=== PATIENT | female | born 1940 | race Caucasian/White ===

== ENCOUNTER 2020-08-14 12:21 | Outpatient (CLI) | payer MEDICARE, SELFPAY ==
--- NOTE | 2020-08-14 12:27 | XRR_ITS ---
PROCEDURE INFORMATION: Exam: XR Chest, 2 Views Exam date and time: 08/14/2020 12:27 PM Age: 79 years old Clinical indication: Dyspnea; Prior surgery; Surgery type: Double mastectomy; Patient HX: SOB a couple of months, worse in recent month, no chest pain; Additional info: Dyspnea, hypertension TECHNIQUE: Imaging protocol: XR of the chest Views: 2 views. COMPARISON: No relevant prior studies available. FINDINGS: Lungs: Unremarkable. No consolidation. Pleural space: Unremarkable. No pleural effusion. No pneumothorax. Heart/Mediastinum: Unremarkable. No cardiomegaly. Bones/joints: There is a lumbar scoliosis convex to the left. Soft tissues: Clips are present in the left axilla from axillary node dissection. XR/XR chest 2V* [id number] IMPRESSION: No significant cardiopulmonary abnormality.
== END 2020-08-14 12:22 | disposition home or self-care (01) ==
LOC: RAD 12:25
PROVIDERS: PCP Family Medicine; Visit Provider Family Medicine
DX: R06.00 Dyspnea, unspecified (principal); I10 Essential (primary) hypertension
CPT/HCPCS: 71046

== ENCOUNTER 2020-11-26 15:13 | Outpatient (CLI) | payer MEDICARE, SELFPAY ==
--- NOTE | 2020-11-26 15:24 | XR_ITS ---
WS: [id number] SCREENING DEXA SCAN ipnexus CLINICAL INFORMATION: POSTMENOPAUSAL COMPARISON: FINDINGS: The L1-L4 bone mineral density measures 1.363 g/cm2. This corresponds to a T score score of 1.5 and Z score of 3.2. Left femoral neck bone mineral density measures 0.990 g/cm2. This corresponds to a T score of -0.1 an d Z score of 1.8. Right femoral neck bone mineral density measures 1.025 g/cm2. This corresponds to a T score 0.1of and Z score of 2.0. Mean femoral neck bone mineral density measures 1.008 g/cm2. This corresponds to a T score of 0.0 and Z score of 1.9. XR/XR DEXA peripheral [id number] IMPRESSION: Normal bone mineralization. Patient's FRAX calculated 10 year probability for major osteoporotic fracture i s 17.4 % and osteoporotic hip fracture is 3.2%.
== END 2020-11-26 15:14 | disposition home or self-care (01) ==
LOC: RADWPI 15:18
PROVIDERS: PCP Family Medicine; Visit Provider Family Medicine
DX: Z78.0 Asymptomatic menopausal state (principal)
CPT/HCPCS: 77081

== ENCOUNTER 2021-03-18 11:32 | Emergency (ER) | payer MEDICARE, SELFPAY ==
[2021-03-18 11:37] VITALS: BP 150/56; PULSE 84; RESP 18; TEMP 36.6; O2SAT 97; BMI 28.5
--- NOTE | 2021-03-18 11:43 | W.ED.NAVMDI ---
HPI - Nausea/Vomiting/Diarrhea General: Chief complaint: Nausea/Vomiting/Diarrhea Stated complaint: n/d for days Time Seen by Provider: 03/18/21 11:37 History of Present Illness: HPI Narrative: The patient is an 80-year-old female who comes to the ER complaining of diarrhea for the past few days. She says Thursday evening she ate some old [place] onion soup and that is possibly what caused this. She began with nausea but did not vomit. And she has had diarrhea that evening yesterday and this morning. She says she feels weak, has abdominal cramping and is tired of having diarrhea. Denies recent antibiotic use or history of C. difficile. Past medical history hypertension. MD elicited complaint: diarrhea Onset (ago): day(s) (3) Description of diarrhea: watery Associated nausea: No Associated abdominal pain: No Location of pain: None Severity: moderate Quality: cramping Exacerbating factors: eating Relieving factors: none Context: possible food poisoning Associated symtoms: Reports fatigue and weakness; Denies anxiety, change in vision, chest pain, cough, dizziness, fevers/chills, headache(s) or nausea Review of Systems General: Reports: 10 or more systems reviewed and unremarkable except in HPI and below Const: Reports: fatigue Eyes: Denies: change in vision, blurry vision or eye redness ENMT: Denies: throat pain, swelling of lips/tongue, ear or mastoid pain or nasal congestion Card: Denies: chest pain Resp: Denies: dyspnea, productive cough or non-productive cough GI: Denies: nausea : Denies: flank pain, difficulty voiding, urinary frequency or urinary urgency Musc: Denies: neck pain, back pain, extremity pain, joint pain, joint redness, limited range of motion or muscle weakness Skin/Breast: Denies: rash, pruritus, erythema, skin pain or skin tenderness Neuro: Denies: headache(s), numbness in extremities, weakness in extremities, sensory changes, difficulty walking, dizziness, confusion or Slurred speech present Psych: Denies: anxiety or depression Endo: Denies: polyuria All/Imm: Denies: urticaria, throat swelling or tongue swelling Physical Exam Const: COMMON NORMALS: no acute distress, average body habitus, patient oriented x3, no limitations, healthy appearing, alert and well nourished GENERAL APPEARANCE: cooperative, comfortable, well kempt and well developed ORIENTATION/CONSCIOUSNESS: Yes awake, Yes oriented to person, Yes oriented to place and Yes oriented to time HENMT: COMMON NORMALS: normocephalic, external ears normal and Normal external nose present HEAD & SCALP: normal to inspection and normocephalic NOSE: Normal external nose present EXTERNAL EAR: Yes external ears normal MOUTH: Normal oral and palatal mucosa present THROAT: posterior oropharynx normal Eye: COMMON NORMALS: Equal, round and reactive pupils present and EOMs intact bilaterally GENERAL EYE: appearance normal, both eyes and all related structures PUPIL: Yes Equal, round and reactive pupils present Neck/C-Spine: COMMON NORMALS: full ROM, no lymphadenopathy, no meningeal signs and no JVD GENERAL: Yes normal visual inspection Lymph: LYMPHATIC: no lymphadenopathy noted Chest: COMMONS NORMALS: normal inspection of the chest and normal palpation of entire chest wall Resp: COMMON NORMALS: normal respiratory effort, No retractions, No use of accessory muscles, clear to auscultation bilaterally and percussion normal EFFORT & INSPECTION: Yes able to speak in complete sentences AUSCULTATION: clear to auscultation bilaterally PERCUSSION: percussion normal Cardio: COMMON NORMALS: no JVD, regular rate, regular rhythm, S1 normal heart sound present, S2 normal heart sound present and Peripheral pulses 2+ throughout RATE: regular rate RHYTHM: regular rhythm HEART SOUNDS: S1 normal heart sound present and S2 normal heart sound present PERIPHERAL PULSES: Peripheral pulses 2+ throughout GI: COMMON NORMALS: Normal to inspection, nondistended, normoactive bowel sounds present, Soft to palpation, non-tender and no masses INSPECTION: Yes normal to inspection PALPATION: Yes Soft to palpation : COMMON NORMALS: Yes no CVA tenderness BLADDER/KIDNEY EXAM: Yes no CVA tenderness Back/Pelvis: COMMON NORMALS: no CVA tenderness, thoracic and lumbar spine normal to inspection, no thoracic nor lumbar tenderness and thoraco-lumbar ROM normal Extremity: COMMON NORMALS: normal to inspection, full ROM, capillary refill normal, no joint enlargement and no pedal edema GENERAL: Yes normal exam except as noted Neuro: COMMON NORMALS: patient oriented x3, CN's II-XII intact bilaterally, moves all extremities, no focal motor deficits, no sensory deficits noted and gait normal SENSORIUM/ORIENTATION: Yes alert, Yes oriented to person, Yes oriented to place and Yes oriented to time MENINGEAL SIGNS: Yes no meningeal signs Psych: COMMON NORMALS: mental status grossly normal, Normal thought process present, cooperative, normal affect and speech normal APPEARANCE: Yes well kempt ATTITUDE: Yes calm SPEECH: Yes normal speech THOUGHT PROCESS: Normal thought process present Skin: COMMON NORMALS: no rashes or lesions noted GENERAL SKIN EXAM: no rashes or lesions noted Course Vital Signs: Vital signs: Vital Signs Temperature 97.9 F 03/18/21 11:37 Pulse Rate 78 03/18/21 16:42 Respiratory Rate 18 03/18/21 16:42 Blood Pressure 137/88 03/18/21 16:42 Pulse Oximetry 98 03/18/21 16:42 MDM - Nausea/Vomiting/Diarrhea MDM Narrative: Medical decision making narrative: The patient likely has food poisoning causing her diarrhea. She was given fluids and did improve some with the Toradol. Incidentally she had some hematuria and white cells and was scanned. There are multiple hypodensities in both kidneys possibly hemorrhagic cyst versus metastatic disease. I discussed this with the patient who recommended calling her primary care physician. I discussed with Dr. Bolden who recommended she follow-up in the clinic tomorrow for further care and work-up of this. Patient is aware there is a possibility it could be cancer and will follow up. We will also discharge her with Macrobid for a potential UTI. Lab Data: Labs: Lab Results 03/18/21 03/18/21 03/18/21 Range/Units 12:00 12:00 12:00 WBC 4.9 (4.0-10.0) 10^3/ uL RBC 4.50 (4.1-5.3) 10^6/u L Hgb 13.9 (11.5-15.3) g/dL Hct 42.5 (37.0-47.0) % MCV 94.4 (81-99) fL MCH 30.9 (28.0-34.0) pg MCHC 32.7 (30.0-36.0) g/dL RDW 13.2 (12.1-15.1) % Plt Count 250 (130-400) 10^3/c mm MPV 9.9 (7.4-10.4) fL Neut % (Auto) 65.8 % Lymph % (Auto) 21.9 % [place] % (Auto) 10.7 % Eos % (Auto) 1.0 % Baso % (Auto) 0.2 % Neut # (Auto) 3.25 (1.8-7.7) 10^3/u L Lymph # (Auto) 1.1 (0.8-4.8) 10^3/u L [place] # (Auto) 0.5 (0.2-0.9) 10^3/u L Eos # (Auto) 0.1 (0.0-0.8) 10^3/u L Baso # (Auto) 0.0 (0.0-0.1) 10^3/u L Nucleated RBC % (a uto) 0 % Nucleated RBCs # 0.0 /100WBC PT (12.1-14.9) SECO NDS INR (0.8-1.2) Sodium 140 (136-145) mmol/L Potassium 3.4 L (3.5-5.1) mmol/L Chloride 102 (98-107) mmol/L Carbon Dioxide 23 (22-29) mmol/L Anion Gap 18.4 (5-19) BUN 21 (8-23) mg/dL Creatinine 1.0 H (0.5-0.9) mg/dL GFR Calculation Not Reportable Glucose 88 (65-115) mg/dL Calculated Osmolal ity 292 (285-295) mOsm/k g Lactate 1.2 (0.5-2.2) mmol/L Calcium 8.2 L (8.5-10.5) mg/dL Total Bilirubin 0.2 (0.15-1.2) mg/dL AST 40 H (0-32) U/L ALT 24 (0-33) U/L Alkaline Phosphata se 64 (35-105) IU/L Total Protein 7.1 (6.6-8.7) g/dL Albumin 4.3 (3.5-5.2) g/dL Globulin 2.8 (1.3-4.6) g/dL Lipase 59 (13-60) U/L Urine Color (Yellow) Urine Appearance (CLEAR) Urine pH (5-7) Ur Specific Gravit y (1.005-1.030) Urine Protein (Negative) Urine Glucose (UA) (Normal) Urine Ketones (Negative) Urine Blood (Negative) Urine Nitrate (Negative) Urine Bilirubin (Negative) Urine Urobilinogen (Negative) mg/dL Ur Leukocyte Luly ase (Negative) Urine RBC (0-2) /hpf Urine WBC (0-5) /hpf Ur Squamous Epith Cells (0-5) /hpf Ur Transition Epit h Cell /hpf Amorphous Sediment /hpf Urine Bacteria (NONE) /hpf Hyaline Casts /lpf Coarse Granular Ca sts /lpf Urine Mucus /hpf 03/18/21 03/18/21 Range/Units 13:33 14:55 WBC (4.0-10.0) 10^3/ uL RBC (4.1-5.3) 10^6/u L Hgb (11.5-15.3) g/dL Hct (37.0-47.0) % MCV (81-99) fL MCH (28.0-34.0) pg MCHC (30.0-36.0) g/dL RDW (12.1-15.1) % Plt Count (130-400) 10^3/c mm MPV (7.4-10.4) fL Neut % (Auto) % Lymph % (Auto) % [place] % (Auto) % Eos % (Auto) % Baso % (Auto) % Neut # (Auto) (1.8-7.7) 10^3/u L Lymph # (Auto) (0.8-4.8) 10^3/u L [place] # (Auto) (0.2-0.9) 10^3/u L Eos # (Auto) (0.0-0.8) 10^3/u L Baso # (Auto) (0.0-0.1) 10^3/u L Nucleated RBC % (a uto) % Nucleated RBCs # /100WBC PT 32.80 H (12.1-14.9) SECO NDS INR 3.14 H (0.8-1.2) Sodium (136-145) mmol/L Potassium (3.5-5.1) mmol/L Chloride (98-107) mmol/L Carbon Dioxide (22-29) mmol/L Anion Gap (5-19) BUN (8-23) mg/dL Creatinine (0.5-0.9) mg/dL GFR Calculation Glucose (65-115) mg/dL Calculated Osmolal ity (285-295) mOsm/k g Lactate (0.5-2.2) mmol/L Calcium (8.5-10.5) mg/dL Total Bilirubin (0.15-1.2) mg/dL AST (0-32) U/L ALT (0-33) U/L Alkaline Phosphata se (35-105) IU/L Total Protein (6.6-8.7) g/dL Albumin (3.5-5.2) g/dL Globulin (1.3-4.6) g/dL Lipase (13-60) U/L Urine Color Yellow (Yellow) Urine Appearance Sl hazy (CLEAR) Urine pH 5 (5-7) Ur Specific Gravit y 1.015 (1.005-1.030) Urine Protein Trace (Negative) Urine Glucose (UA) Norm (Normal) Urine Ketones 1+ H (Negative) Urine Blood 3+ H (Negative) Urine Nitrate Negative (Negative) Urine Bilirubin 1+ H (Negative) Urine Urobilinogen Norm (Negative) mg/dL Ur Leukocyte Luly ase 1+ H (Negative) Urine RBC 5-10 H (0-2) /hpf Urine WBC 10-15 H (0-5) /hpf Ur Squamous Epith Cells 0-4 H (0-5) /hpf Ur Transition Epit h Cell 0-4 /hpf Amorphous Sediment 1+ /hpf Urine Bacteria 1+ H (NONE) /hpf Hyaline Casts 10-15 H /lpf Coarse Granular Ca sts 0-4 H /lpf Urine Mucus Trace /hpf Discharge Plan Discharge Patient Disposition: Home Clinical Impression: Gastroenteritis, Renal cyst Condition: Stable Prescriptions: New Macrobid 100 mg capsule 100 mg PO BID 5 Days Qty: 10 RF: 0 No Action multivitamin Tablet 1 tab PO DAILY RF: 0 potassium chloride 10 mEq tablet extended release 10 meq PO DAILY@08 RF: 0 Deonna 180 mg Tablet 180 mg PO QAM RF: 0 amlodipine 5 mg tablet 5 mg PO DAILY@08 RF: 0 Tylenol 8 Hour 650 mg Tablet Extended Release 650 mg PO BID RF: 0 amitriptyline 10 mg tablet 10 mg PO BEDTIME RF: 0 warfarin 5 mg tablet See Rx Instructions .ROUTE .COMPLEX RF: 0 hydrochlorothiazide 25 mg tablet 25 mg PO DAILY@08 RF: 0 losartan 100 mg tablet 100 mg PO DAILY@08 RF: 0 fluticasone propionate 50 mcg/actuation spray,suspension 2 spray INTRANASAL QAM RF: 0 Vitamin C 1 tab PO DAILY RF: 0 vitamin E 1 tab PO DAILY RF: 0 gelatin Tablet 1 tab PO DAILY RF: 0 magnesium Tablet 1 tab PO DAILY RF: 0 potassium gluconate 595 mg (99 mg) Tablet 595 mg PO DAILY RF: 0 Vitamin B-12 1 tab PO DAILY RF: 0 Vitamin B-6 1 tab PO DAILY RF: 0 Vitamin D3 1 cap PO DAILY RF: 0 lecithin 1 tab PO DAILY RF: 0 Discharge Orders: Discharge ED (Routine); Ordered 03/18/21 Ordered By: Philippe Villalobos Referrals: Bret Bolden MD [Primary Care Provider] - Discharge Diet: Advance as tolerated Discharge Activity: Resume usual activity Patient Instructions: Food Poisoning (ED), Opioid Safety Activity Restrictions/Additional Instructions: You are likely having diarrhea possibly from food poisoning. You can buy Imodium [id number] and that may help with your diarrhea some. Please continue to drink lots of fluids to keep yourself hydrated. There is blood and white cells in your urine and we will be giving you an antibiotic to go home with. CAT scan of your abdomen shows that there are multiple hypodensities in your kidneys that are possibly hemorrhagic cysts versus metastatic cancer. I have discussed with Dr. Gonzales your primary care physician who recommends seeing him in the clinic tomorrow for further work-up of this. Return to the ER at anytime with worsening symptoms. Please be aware that there is a possibility this could be cancer so make sure you follow-up with Dr. Bolden tomorrow as if it is, early diagnosis and treatment leads to better prognosis Coding Level of Care Code ED Dual Hose Cementer for Sarah Fwd Exam Comprehensive
[2021-03-18] MEDS: ketorolac 30 mg/mL INJ 15 MG IVP (12:11)
[2021-03-18] MEDS: sodium chloride 0.9% 1,000 ML 999 ML IV (12:12)
[2021-03-18 12:24] LABS: Basophils % 0.2 %; Eosinophils # 0.1 10^3/uL (0.0-0.8); Hematocrit 42.5 % (37.0-47.0); Hemoglobin 13.9 g/dL (11.5-15.3); Lymphocytes # 1.1 10^3/uL (0.8-4.8); Lymphocytes % 21.9 %; Mean Corpuscular HGB Conc 32.7 g/dL (30.0-36.0); Mean Corpuscular Hemoglobin 30.9 pg (28.0-34.0); Mean Corpuscular Volume 94.4 fL (81-99); Mean Platelet Volume 9.9 fL (7.4-10.4); Monocytes # 0.5 10^3/uL (0.2-0.9); Monocytes % 10.7 %; Neutrophils # 3.25 10^3/uL (1.8-7.7); Neutrophils % 65.8 %; Nucleated Red Blood Cells % 0 %; Platelet Count 250 10^3/cmm (130-400); Red Cell Distribution Width 13.2 % (12.1-15.1); White Blood Count 4.9 10^3/uL (4.0-10.0)
[2021-03-18 12:38] LABS: Lactate (Lactic Acid level) 1.2 mmol/L (0.5-2.2)
[2021-03-18 12:39] LABS: Alanine Aminotransferase 24 U/L (0-33); Albumin Level 4.3 g/dL (3.5-5.2); Alkaline Phosphatase 64 IU/L (35-105); Anion Gap 18.4 (5-19); Aspartate Amino Transferase 40 U/L (0-32); Blood Urea Nitrogen 21 mg/dL (8-23); Calcium 8.2 mg/dL (8.5-10.5); Carbon Dioxide 23 mmol/L (22-29); Chloride 102 mmol/L (98-107); Creatinine Clr Calc Pharmacy 39.7452; Globulin 2.8 g/dL (1.3-4.6); Glucose 88 mg/dL (65-115); Lipase 59 U/L (13-60); Osmolality Calculated 292 mOsm/kg (285-295); Potassium 3.4 mmol/L (3.5-5.1); Sodium 140 mmol/L (136-145); Total Bilirubin 0.2 mg/dL (0.15-1.2); Total Protein 7.1 g/dL (6.6-8.7)
[2021-03-18 13:42] VITALS: RESP 18
[2021-03-18 13:50] LABS: INR 3.14 (0.8-1.2)
[2021-03-18 14:42] VITALS: RESP 18
[2021-03-18 15:12] LABS: Bilirubin Urine 1+ (Negative); Blood Urine 3+ (Negative); Glucose Urine UA Norm (Normal); Ketones Urine 1+ (Negative); Nitrate Urine Negative (Negative); Protein Urine Trace (Negative); Specific Gravity, Urine 1.015 (1.005-1.030); Urine Appearance SL Hazy (CLEAR); Urine Color Yellow (Yellow); Urobilinogen Urine Norm (Negative); pH Urine 5 (5-7)
[2021-03-18 15:13] LABS: Add Urine Microscopic? YES; Leukocyte Esterase Urine 1+ (Negative)
[2021-03-18 15:15] LABS: Bacteria Urine 1+ /hpf; Mucus Urine TRACE /hpf; Squamous Epithelial Cell Urine 0-4 /hpf (0-5); Transitional Epi Cells Urine 0-4 /hpf
--- NOTE | 2021-03-18 15:15 | CTR_ITS ---
PROCEDURE INFORMATION: Exam: CT Abdomen And Pelvis With Contrast Exam date and time: 03/18/2021 3:51 PM Age: 80 years old Clinical indication: Abdominal pain; Generalized; Prior surgery; Surgery type: Appy; Patient HX: HX of breast cancer; Additional info: Abd cramping, blood in urine TECHNIQUE: Imaging protocol: Computed tomography of the abdomen and pelvis with contrast. Radiation optimization: All CT scans at this facility use at least one of these dose optimization techniques: automated exposure control; mA and/or kV adjustment per patient size (includes targeted exams where dose is matched to clinical indication); or iterative reconstruction. Contrast material: OMNI 320; Contrast volume: 95 ml; Contrast route: INTRAVENOUS (IV); COMPARISON: No relevant prior studies available. RADIATION DOSE METRICS: Total DLP (mGy-cm): 1460.15 FINDINGS: Liver: Normal. No mass. Gallbladder and bile ducts: Normal. No calcified stones. No ductal dilation. Pancreas: Normal. No ductal dilation. Spleen: Normal. No splenomegaly. Adrenal glands: Normal. No mass. Kidneys and ureters: Multiple bilateral renal hypodensities with the largest measuring > 1.0 cm. These measure approximately 40-70 Hounsfield units. These probably represent hemorrhagic cysts versus metastatic disease. Nonemergent multiphasic CT abdomen with and without contrast with delayed images may be helpful complete evaluation. Stomach and bowel: Unremarkable. No obstruction. No mucosal thickening. Appendix: No evidence of appendicitis. Intraperitoneal space: Unremarkable. No free air. No significant fluid collection. Vasculature: Unremarkable. No abdominal aortic aneurysm. Lymph nodes: Unremarkable. No enlarged lymph nodes. Urinary bladder: Unremarkable as visualized. Reproductive: Status post hysterectomy. Bones/joints: Moderate to severe multilevel spine degenerative changes including degenerative disc disease, spondylosis and facet degenerative changes. Soft tissues: Unremarkable. Other findings: . CT/CT abdomen pelvis w con* [id number] IMPRESSION: 1. Multiple bilateral renal hypodensities with the largest measuring > 1.0 cm. These measure approximately 40-70 Hounsfield units. These probably represent hemorrhagic cysts versus metastatic disease. Nonemergent multiphasic CT abdomen with and without contrast with delayed images may be helpful complete evaluation. 2. Status post hysterectomy. COMMENTS: Consistent with the [employer]'s Incidental Findings Committee white paper ([facility] 2018): Any incidental renal lesion less than 1 cm or classified as too small to characterize, or any incidental cystic renal lesion characterized as simple-appearing, is likely benign. No follow-up imaging is recommended for these lesions per consensus recommendations based on imaging criteria. Radiation Dose CTDIVOL = (mGy): DLP = 1460.15 (mGy-cm)
[2021-03-18 15:16] LABS: Add Urine Culture? No; Amorphous Sediment Urine 1+ /hpf; Coarse Granular Casts Urine 0-4 /lpf
[2021-03-18] MEDS: iodixanol 320 mg/mL 100mL Btl IV (16:05)
[2021-03-18 16:42] VITALS: BP 137/88; PULSE 78; RESP 18; O2SAT 98
[2021-03-18] MEDS: nitrofurantoin SR (BID) 100 mg Capsule PO (18:20)
[2021-03-18 18:24] VITALS: BP 137/88; PULSE 78; RESP 18; O2SAT 98
== END 2021-03-18 18:25 | disposition home or self-care (01) ==
PROVIDERS: Emergency Provider Family Medicine; PCP Family Medicine
DX: K52.9 Noninfective gastroenteritis and colitis, unspecified (principal); N28.1 Cyst of kidney, acquired; R31.9 Hematuria, unspecified
CPT/HCPCS: 36415; 74177; 80053; 81001; 83605; 83690; 85025; 85610; 96361; 96374; 99284; J1885; J7030; Q9967

== ENCOUNTER 2021-04-25 13:49 | Outpatient (CLI) | payer MEDICARE, SELFPAY ==
--- NOTE | 2021-04-25 14:15 | US_ITS ---
WS: [id number] ULTRASOUND RENAL TECHNIQUE: Ultrasound examination of both kidneys. CLINICAL INFORMATION: RENAL MASS COMPARISON: CT March 18, 2021 FINDINGS: Multiple bilateral renal cysts. No solid renal masses. Both Simple and slightly complex cys ts with one or 2 septations are demonstrated. Largest cyst left mid kidney measuring 1.2 x 1.4 cm. RIGHT: Right kidney is normal in size Echogenicity: Normal. Cortical thickness: 1.6 cm; Normal. Hydronephrosis: None. Perinephric fluid: None. Right kidney measures: 9.1,10.0 cm x 3.9 cm x 4.2 cm. LEFT: Left kidney is normal in size Echogenicity: Normal. Cortical thickness: 0.9 cm; Normal. Hydronephrosis: None. Perinephric fluid: None. Left kidney measures: 6.8 cm x 2.8 cm x 4.0 cm. Normal visualized aorta. US/US renal BI* [id number] IMPRESSION: 1. Multiple bilateral renal cysts. A few of these demonstrate one or 2 septati ons. No solid renal lesions. 2. No hydronephrosis in either kidney. 3. Normal bladder.
== END 2021-04-25 13:50 | disposition home or self-care (01) ==
PROVIDERS: PCP Family Medicine; Visit Provider Family Medicine
DX: N28.89 Other specified disorders of kidney and ureter; Q61.02 Congenital multiple renal cysts
CPT/HCPCS: 76770

== ENCOUNTER 2021-05-20 17:12 | Emergency (ER) | payer MEDICARE, SELFPAY ==
[2021-05-20 17:33] VITALS: BP 153/69; PULSE 68; RESP 16; TEMP 36.6; O2SAT 96; BMI 29.0
--- NOTE | 2021-05-20 19:19 | ED_ITS ---
HPI - Animal Bite General: Chief Complaint: Animal Bite Stated Complaint: stung, sob Time Seen by Provider: 05/20/21 19:19 History of Present Illness: HPI narrative: 80-year-old female comes in today with complaints of wasp sting to the right buttock. Patient reports he went outside to feed her cat and bent over to crab picker a dish and felt a sudden sting to her right buttock. Patient went into the house shortly thereafter and felt some chest discomfort radiating through to her back. Patient sat down and rest and feels better now but came in to be evaluated. Patient does take a daily Deonna tablet 180 mg. Patient had recently taken some Tylenol prior to the staying. Patient thinks that she is doing better but was concerned about the chest pressure. Review of Systems General: Reports: 10 or more systems reviewed and unremarkable except in HPI and below Card: Reports: chest pain Physical Exam Const: COMMON NORMALS: no acute distress and patient oriented x3 GENERAL APPEARANCE: cooperative HENMT: COMMON NORMALS: normocephalic and Normal external nose present HEAD & SCALP: normal to inspection and normocephalic NOSE: Normal external nose present MOUTH: Normal oral and palatal mucosa present THROAT: posterior oropharynx normal Eye: GENERAL EYE: appearance normal, both eyes and all related structures Neck/C-Spine: COMMON NORMALS: full ROM Chest: COMMONS NORMALS: normal inspection of the chest Resp: COMMON NORMALS: normal respiratory effort and clear to auscultation bilaterally EFFORT & INSPECTION: Yes able to speak in complete sentences AUSCULTATION: clear to auscultation bilaterally Cardio: COMMON NORMALS: regular rate and regular rhythm RATE: regular rate RHYTHM: regular rhythm GI: COMMON NORMALS: non-tender Back/Pelvis: COMMON NORMALS: thoracic and lumbar spine normal to inspection Extremity: COMMON NORMALS: normal to inspection Neuro: COMMON NORMALS: patient oriented x3 and moves all extremities Psych: COMMON NORMALS: mental status grossly normal and cooperative Skin: NARRATIVE SKIN EXAM: Punctate lesion to the right buttock with a area of redness approximately 8 cm surrounding it. No induration no abscess formation. Course Vital Signs: Vital signs: Vital Signs Temperature 97.8 F 05/20/21 17:33 Pulse Rate 68 05/20/21 17:33 Respiratory Rate 16 05/20/21 17:33 Blood Pressure 153/69 05/20/21 17:33 Pulse Oximetry 96 05/20/21 17:33 MDM - Animal Bite MDM Narrative: Medical decision making narrative: Patient comes in for a worsening to the right buttock. On exam patient has an area of redness is approximate 8 cm with a centralized punctate lesion. This is on the right buttock. Patient moves well respirations are even lungs are clear to auscultation. Differential diagnosis includes localized reaction to insect bite, anaphylaxis, anxiety, ACS. EKG showed a normal sinus rhythm. Patient was well throughout ER stay for approximately 3 hours was monitored without any adverse changes. Patient felt well and was given a dose of dexamethasone and encouraged to increase Deonna to 180 twice a day for the next 4 days. Patient agreed to plan will use acetaminophen for pain and follow-up with primary care as needed. EKG Data^: EKG 1: Attestation: I personally reviewed and interpreted this EKG as follows: (1950, EKG shows a sinus rhythm with regular rate at 66 bpm. No ectopy no ST el evation. Interpreted as normal. No prior is available at this time for comparison. There is noticeable mild artifact to the EKG.) Discharge Plan Discharge Patient Disposition: Home Clinical Impression: Accidental wasp sting Condition: Stable Prescriptions: No Action multivitamin Tablet 1 tab PO DAILY RF: 0 potassium chloride 10 mEq tablet extended release 10 meq PO DAILY@08 RF: 0 Deonna 180 mg Tablet 180 mg PO QAM RF: 0 amlodipine 5 mg tablet 5 mg PO DAILY@08 RF: 0 Tylenol 8 Hour 650 mg Tablet Extended Release 650 mg PO BID RF: 0 amitriptyline 10 mg tablet 10 mg PO BEDTIME RF: 0 warfarin 5 mg tablet See Rx Instructions .ROUTE .COMPLEX RF: 0 hydrochlorothiazide 25 mg tablet 25 mg PO DAILY@08 RF: 0 losartan 100 mg tablet 100 mg PO DAILY@08 RF: 0 fluticasone propionate 50 mcg/actuation spray,suspension 2 spray INTRANASAL QAM RF: 0 Vitamin C 1 tab PO DAILY RF: 0 vitamin E 1 tab PO DAILY RF: 0 gelatin Tablet 1 tab PO DAILY RF: 0 magnesium Tablet 1 tab PO DAILY RF: 0 potassium gluconate 595 mg (99 mg) Tablet 595 mg PO DAILY RF: 0 Vitamin B-12 1 tab PO DAILY RF: 0 Vitamin B-6 1 tab PO DAILY RF: 0 Vitamin D3 1 cap PO DAILY RF: 0 lecithin 1 tab PO DAILY RF: 0 Discharge Orders: Discharge ED (Routine); Ordered 05/20/21 Ordered By: Jason Goncalves Referrals: Bret Bolden MD [Primary Care Provider] - Discharge Diet: Usual diet Discharge Activity: Increase activity as tolerated Patient Instructions: Insect Bite or Sting (ED), Opioid Safety Activity Restrictions/Additional Instructions: Activity as tolerated. Use acetaminophen for pain. Increase Deonna to 1 tablet twice a day for the next 4 to 5 days. Follow-up with primary care as needed. Return to the emergency department for new concerns. Coding Level of Care Code ED Vinyl Installer for Sarah Fwd Exam Comprehensive
[2021-05-20] MEDS: dexamethasone 10 mg/mL INJ IM (19:53)
[2021-05-20 20:01] VITALS: BP 170/69; PULSE 71; RESP 18; O2SAT 100
== END 2021-05-20 20:02 | disposition home or self-care (01) ==
PROVIDERS: Emergency Provider Nurse Practitioner Family; PCP Family Medicine
DX: T63.461A Toxic effect of venom of wasps, accidental (unintentional), initial encounter (principal); R07.89 Other chest pain; R06.02 Shortness of breath
CPT/HCPCS: 96372; 99283; J1100

== ENCOUNTER 2021-12-05 09:52 | Outpatient (CLI) | payer MEDICARE, SELFPAY ==
--- NOTE | 2021-12-05 10:09 | US_ITS ---
WS: [id number] RENAL ULTRASOUND HISTORY: HX OF ADENOCARCINOMA/RENAL MASS COMPARISON: 04/25/2021 TECHNIQUE: 2-D and color Doppler imaging of the kidney submitted. Right kidney: 9.2 cm x 4.3 cm x 4.1 cm. Normal size kidney with normal echogenicity. There are a few small cortical cysts. The largest in the upper pole measures 1.1 cm maximum. No solid mass. Not all of the tiny cyst noted on the prior study are identified today. Left kidney: 8.3 cm x 4.2 cm x 4.3 cm. Mild atrophy and cortical thinning. Small cortical cysts are identified. Not all the cysts are identi fied today as seen on the prior study. The largest with a maximum diameter 1.1 cm. Aorta: Mild atherosclerosis. Urinary Bladder: Minimally distended. US/US renal BI* [id number] IMPRESSION: 1. No hydronephrosis. 2. No solid mass identified. There are a few small cortical cysts which are st able. 3. Mild atrophy LEFT kidney.
== END 2021-12-05 09:53 | disposition home or self-care (01) ==
PROVIDERS: PCP Family Medicine; Visit Provider Family Medicine
DX: N28.89 Other specified disorders of kidney and ureter (principal); N26.1 Atrophy of kidney (terminal)
CPT/HCPCS: 76770

== ENCOUNTER → 2022-04-08 14:03 | Outpatient (BNVA) | payer MEDICARE, SELFPAY | PROVIDERS: PCP Family Medicine; Visit Provider Family Medicine | DX: E78.5 Hyperlipidemia, unspecified (principal); I10 Essential (primary) hypertension; Z51.81 Encounter for therapeutic drug level monitoring; Z79.01 Long term (current) use of anticoagulants | CPT/HCPCS: 85025; 85610 ==

== ENCOUNTER → 2022-05-08 10:57 | Outpatient (BNVA) | payer MEDICARE, SELFPAY | PROVIDERS: PCP Family Medicine; Visit Provider Family Medicine | DX: Z79.01 Long term (current) use of anticoagulants (principal) | CPT/HCPCS: 85610 ==

== ENCOUNTER → 2022-06-17 11:11 | Outpatient (BNVA) | payer MEDICARE, SELFPAY | PROVIDERS: PCP Family Medicine; Visit Provider Family Medicine | DX: Z79.01 Long term (current) use of anticoagulants (principal) | CPT/HCPCS: 85610 ==

== ENCOUNTER → 2022-07-23 10:55 | Outpatient (BNVA) | payer MEDICARE, SELFPAY | PROVIDERS: PCP Family Medicine; Visit Provider Family Medicine | DX: Z85.3 Personal history of malignant neoplasm of breast (principal) | CPT/HCPCS: 85610 ==

== ENCOUNTER → 2022-09-03 13:18 | Outpatient (BNVA) | payer MEDICARE, SELFPAY | PROVIDERS: PCP Family Medicine; Visit Provider Family Medicine | DX: Z79.01 Long term (current) use of anticoagulants (principal) | CPT/HCPCS: 85610 ==

== ENCOUNTER → 2022-10-06 14:04 | Outpatient (BNVA) | payer MEDICARE, SELFPAY | PROVIDERS: PCP Family Medicine; Visit Provider Family Medicine | DX: Z85.3 Personal history of malignant neoplasm of breast (principal); Z79.01 Long term (current) use of anticoagulants; E78.5 Hyperlipidemia, unspecified; I10 Essential (primary) hypertension; Z86.711 Personal history of pulmonary embolism | CPT/HCPCS: 80053; 85025; 85610 ==

== ENCOUNTER → 2022-12-30 10:08 | Outpatient (BNVA) | payer MEDICARE, SELFPAY | PROVIDERS: PCP Family Medicine; Visit Provider Family Medicine | DX: Z86.711 Personal history of pulmonary embolism (principal); I10 Essential (primary) hypertension; E78.5 Hyperlipidemia, unspecified | CPT/HCPCS: 85610 ==

== ENCOUNTER → 2023-02-04 11:06 | Outpatient (BNVA) | payer MEDICARE, SELFPAY | PROVIDERS: PCP Family Medicine; Visit Provider Family Medicine | DX: E78.5 Hyperlipidemia, unspecified (principal); I10 Essential (primary) hypertension; Z86.711 Personal history of pulmonary embolism; Z79.01 Long term (current) use of anticoagulants | CPT/HCPCS: 85610 ==

== ENCOUNTER → 2023-02-18 10:47 | Outpatient (BNVA) | payer MEDICARE, SELFPAY | PROVIDERS: PCP Family Medicine; Visit Provider Family Medicine | DX: Z86.711 Personal history of pulmonary embolism (principal) | CPT/HCPCS: 85610 ==

== ENCOUNTER → 2023-03-17 12:41 | Outpatient (BNVA) | payer MEDICARE, SELFPAY | PROVIDERS: PCP Family Medicine; Visit Provider Family Medicine | DX: Z86.711 Personal history of pulmonary embolism (principal); E78.5 Hyperlipidemia, unspecified; I10 Essential (primary) hypertension | CPT/HCPCS: 85610 ==

== ENCOUNTER → 2023-03-27 10:58 | Outpatient (BNVA) | payer MEDICARE, SELFPAY | PROVIDERS: PCP Family Medicine; Visit Provider Family Medicine | DX: Z86.711 Personal history of pulmonary embolism (principal) | CPT/HCPCS: 85610 ==

== ENCOUNTER → 2023-04-10 10:14 | Outpatient (BNVA) | payer MEDICARE, SELFPAY | PROVIDERS: PCP Family Medicine; Visit Provider Family Medicine | DX: Z86.711 Personal history of pulmonary embolism (principal) | CPT/HCPCS: 85610 ==

== ENCOUNTER → 2023-04-20 15:14 | Outpatient (BNVA) | payer MEDICARE, SELFPAY | PROVIDERS: PCP Family Medicine; Visit Provider Family Medicine | DX: Z86.711 Personal history of pulmonary embolism (principal); I10 Essential (primary) hypertension | CPT/HCPCS: 80053; 83690; 85025; 85610 ==

== ENCOUNTER → 2023-05-20 10:00 | Outpatient (BNVA) | payer MEDICARE, SELFPAY | PROVIDERS: PCP Family Medicine; Visit Provider Family Medicine | DX: E78.5 Hyperlipidemia, unspecified (principal); Z86.711 Personal history of pulmonary embolism | CPT/HCPCS: 85610 ==

== ENCOUNTER → 2023-05-27 10:47 | Outpatient (BNVA) | payer MEDICARE, SELFPAY | PROVIDERS: PCP Family Medicine; Visit Provider Family Medicine | DX: Z86.711 Personal history of pulmonary embolism (principal) | CPT/HCPCS: 85610 ==

== ENCOUNTER → 2023-06-22 10:01 | Outpatient (BNVA) | payer MEDICARE, SELFPAY | PROVIDERS: PCP Family Medicine; Visit Provider Family Medicine | DX: E78.5 Hyperlipidemia, unspecified (principal); I10 Essential (primary) hypertension; Z79.01 Long term (current) use of anticoagulants; Z86.711 Personal history of pulmonary embolism | CPT/HCPCS: 85610 ==

== ENCOUNTER → 2023-07-22 14:11 | Outpatient (BNVA) | payer MEDICARE, SELFPAY | PROVIDERS: PCP Family Medicine; Visit Provider Family Medicine | DX: Z86.711 Personal history of pulmonary embolism (principal) | CPT/HCPCS: 85610 ==

== ENCOUNTER → 2023-08-18 13:59 | Outpatient (BNVA) | payer MEDICARE, SELFPAY | PROVIDERS: PCP Family Medicine; Visit Provider Family Medicine | DX: E78.5 Hyperlipidemia, unspecified (principal); I10 Essential (primary) hypertension; Z86.711 Personal history of pulmonary embolism | CPT/HCPCS: 85610 ==

== ENCOUNTER → 2023-09-16 10:16 | Outpatient (BNVA) | payer MEDICARE, SELFPAY | PROVIDERS: PCP Family Medicine; Visit Provider Family Medicine | DX: Z86.711 Personal history of pulmonary embolism (principal) | CPT/HCPCS: 85610 ==

== ENCOUNTER → 2023-09-16 10:16 | Outpatient (BNVA) | payer MEDICARE, SELFPAY | PROVIDERS: PCP Family Medicine; Visit Provider Family Medicine | DX: Z86.711 Personal history of pulmonary embolism (principal) | CPT/HCPCS: 85610 ==

== ENCOUNTER → 2023-10-20 10:22 | Outpatient (BNVA) | payer MEDICARE, SELFPAY | PROVIDERS: PCP Family Medicine; Visit Provider Family Medicine | DX: Z86.711 Personal history of pulmonary embolism (principal) | CPT/HCPCS: 85610 ==

== ENCOUNTER → 2023-11-17 09:14 | Outpatient (BNVA) | payer MEDICARE, SELFPAY | PROVIDERS: PCP Family Medicine; Visit Provider Family Medicine | DX: I10 Essential (primary) hypertension (principal); E78.5 Hyperlipidemia, unspecified; Z86.711 Personal history of pulmonary embolism | CPT/HCPCS: 80053; 80061; 85025; 85610 ==

== ENCOUNTER → 2023-12-17 10:01 | Outpatient (BNVA) | payer MEDICARE, SELFPAY | PROVIDERS: PCP Family Medicine; Visit Provider Family Medicine | DX: Z86.711 Personal history of pulmonary embolism (principal) | CPT/HCPCS: 85610 ==

== ENCOUNTER → 2024-01-15 11:07 | Outpatient (BNVA) | payer MEDICARE, SELFPAY | PROVIDERS: PCP Family Medicine; Visit Provider Family Medicine | DX: Z86.711 Personal history of pulmonary embolism (principal) | CPT/HCPCS: 85610 ==

== ENCOUNTER → 2024-02-10 10:51 | Outpatient (BNVA) | payer MEDICARE, SELFPAY | PROVIDERS: PCP Family Medicine; Visit Provider Family Medicine | DX: I48.91 Unspecified atrial fibrillation (principal); Z86.711 Personal history of pulmonary embolism | CPT/HCPCS: 85610 ==

== ENCOUNTER → 2024-03-11 10:36 | Outpatient (BNVA) | payer MEDICARE, SELFPAY | PROVIDERS: PCP Family Medicine; Visit Provider Family Medicine | DX: Z86.711 Personal history of pulmonary embolism (principal); Z79.01 Long term (current) use of anticoagulants | CPT/HCPCS: 85610 ==

== ENCOUNTER → 2024-04-13 09:45 | Outpatient (BNVA) | payer MEDICARE, SELFPAY | PROVIDERS: PCP Family Medicine; Visit Provider Family Medicine | DX: Z86.711 Personal history of pulmonary embolism (principal) | CPT/HCPCS: 85610 ==

== ENCOUNTER → 2024-06-10 09:53 | Outpatient (BNVA) | payer MEDICARE, SELFPAY | PROVIDERS: PCP Family Medicine; Visit Provider Family Medicine | DX: I10 Essential (primary) hypertension (principal); E78.5 Hyperlipidemia, unspecified; Z86.711 Personal history of pulmonary embolism | CPT/HCPCS: 80053; 80061; 85025 ==

== ENCOUNTER → 2024-06-14 10:28 | Outpatient (BNVA) | payer MEDICARE, SELFPAY | PROVIDERS: PCP Family Medicine; Visit Provider Family Medicine | DX: Z86.711 Personal history of pulmonary embolism (principal) | CPT/HCPCS: 85610 ==

== ENCOUNTER → 2024-07-12 10:23 | Outpatient (BNVA) | payer MEDICARE, SELFPAY | PROVIDERS: PCP Family Medicine; Visit Provider Family Medicine | DX: Z86.711 Personal history of pulmonary embolism (principal) | CPT/HCPCS: 85610 ==

== ENCOUNTER → 2024-08-09 10:19 | Outpatient (BNVA) | payer MEDICARE, SELFPAY | PROVIDERS: PCP Family Medicine; Visit Provider Family Medicine | DX: Z86.711 Personal history of pulmonary embolism (principal) | CPT/HCPCS: 85610 ==

== ENCOUNTER → 2024-09-06 10:33 | Outpatient (BNVA) | payer MEDICARE, SELFPAY | PROVIDERS: PCP Family Medicine; Visit Provider Family Medicine | DX: Z86.711 Personal history of pulmonary embolism (principal) | CPT/HCPCS: 85610 ==

== ENCOUNTER → 2024-09-08 10:51 | Outpatient (BNVA) | payer MEDICARE, SELFPAY | PROVIDERS: PCP Family Medicine; Visit Provider Family Medicine | DX: Z86.711 Personal history of pulmonary embolism (principal) | CPT/HCPCS: 85610 ==

== ENCOUNTER → 2024-10-05 10:41 | Outpatient (BNVA) | payer MEDICARE, SELFPAY | PROVIDERS: PCP Family Medicine; Visit Provider Family Medicine | DX: Z86.711 Personal history of pulmonary embolism (principal) | CPT/HCPCS: 85610 ==

== ENCOUNTER → 2024-11-03 10:46 | Outpatient (BNVA) | payer MEDICARE, SELFPAY | PROVIDERS: PCP Family Medicine; Visit Provider Family Medicine | DX: Z86.711 Personal history of pulmonary embolism (principal) | CPT/HCPCS: 85610 ==

== ENCOUNTER → 2024-11-29 10:20 | Outpatient (BNVA) | payer MEDICARE, SELFPAY | PROVIDERS: PCP Family Medicine; Visit Provider Family Medicine | DX: Z86.711 Personal history of pulmonary embolism (principal); I10 Essential (primary) hypertension; E78.5 Hyperlipidemia, unspecified; Z85.3 Personal history of malignant neoplasm of breast | CPT/HCPCS: 85610 ==

== ENCOUNTER → 2024-12-05 12:59 | Outpatient (BNVA) | payer MEDICARE, SELFPAY | PROVIDERS: PCP Family Medicine; Visit Provider Family Medicine | DX: I10 Essential (primary) hypertension (principal); E78.5 Hyperlipidemia, unspecified; Z85.3 Personal history of malignant neoplasm of breast; Z86.711 Personal history of pulmonary embolism | CPT/HCPCS: 80053; 85025; 85610 ==

== ENCOUNTER → 2024-12-30 10:50 | Outpatient (BNVA) | payer MEDICARE, SELFPAY | PROVIDERS: PCP Family Medicine; Visit Provider Family Medicine | DX: Z86.711 Personal history of pulmonary embolism (principal) | CPT/HCPCS: 85610 ==

== ENCOUNTER → 2025-01-25 09:48 | Outpatient (BNVA) | payer MEDICARE, SELFPAY | PROVIDERS: PCP Family Medicine; Visit Provider Family Medicine | DX: Z86.711 Personal history of pulmonary embolism (principal) | CPT/HCPCS: 85610 ==

== ENCOUNTER → 2025-03-01 10:08 | Outpatient (BNVA) | payer MEDICARE, SELFPAY | PROVIDERS: PCP Family Medicine; Visit Provider Family Medicine | DX: Z86.711 Personal history of pulmonary embolism (principal) | CPT/HCPCS: 85610 ==

== ENCOUNTER → 2025-03-06 12:58 | Outpatient (BNVA) | payer MEDICARE, SELFPAY | PROVIDERS: PCP Family Medicine; Visit Provider Family Medicine | DX: I10 Essential (primary) hypertension (principal); E78.5 Hyperlipidemia, unspecified; R53.83 Other fatigue; Z85.3 Personal history of malignant neoplasm of breast; Z86.711 Personal history of pulmonary embolism | CPT/HCPCS: 80053; 82607; 83880; 84443; 85025; 86140 ==

== ENCOUNTER → 2025-03-28 10:57 | Outpatient (BNVA) | payer MEDICARE, SELFPAY | PROVIDERS: PCP Family Medicine; Visit Provider Family Medicine | DX: Z86.711 Personal history of pulmonary embolism (principal) | CPT/HCPCS: 85610 ==

== ENCOUNTER → 2025-04-26 10:58 | Outpatient (BNVA) | payer MEDICARE, SELFPAY | PROVIDERS: PCP Family Medicine; Visit Provider Family Medicine | DX: Z79.01 Long term (current) use of anticoagulants (principal) | CPT/HCPCS: 85610 ==

== ENCOUNTER → 2025-05-23 10:04 | Outpatient (BNVA) | payer MEDICARE, SELFPAY | PROVIDERS: PCP Family Medicine; Visit Provider Family Medicine | DX: Z79.01 Long term (current) use of anticoagulants (principal); I48.91 Unspecified atrial fibrillation | CPT/HCPCS: 85610 ==

== ENCOUNTER → 2025-06-20 10:56 | Outpatient (BNVA) | payer MEDICARE, SELFPAY | PROVIDERS: PCP Family Medicine; Visit Provider Family Medicine | DX: Z86.711 Personal history of pulmonary embolism (principal) | CPT/HCPCS: 85610 ==

== ENCOUNTER 2025-07-13 15:36 | Outpatient (CLI) | payer MEDICARE, SELFPAY ==
--- NOTE | 2025-07-13 15:42 | XR_ITS ---
WS: [id number] XR chest 2V* [id number] REASON FOR EXAM: dyspnea FINDINGS: The chest is unchanged compared to 08/14/2020. The heart and mediastinum are within normal limits. Calcified granulomatous disease bilaterally. Calcification of the trachea and central airways. No acute pulmonary parenchymal or pleural abnormality is identified. Axillary surgical clips, presumed post lymphadenectomy. 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 XR/XR chest 2V* [id number] IMPRESSION: Stable chest without acute abnormality.
== END 2025-07-13 15:37 | disposition home or self-care (01) ==
LOC: RAD 15:39
PROVIDERS: PCP Family Medicine; Visit Provider Family Medicine
DX: R07.9 Chest pain, unspecified (principal); J98.4 Other disorders of lung; I10 Essential (primary) hypertension; R06.00 Dyspnea, unspecified
CPT/HCPCS: 71046; 80053; 83880; 85025; 85379; 86140

== ENCOUNTER 2025-07-27 08:53 | Outpatient (CLI) | payer MEDICARE, SELFPAY ==
[2025-07-27 09:25] VITALS: BMI 26.6
--- NOTE | 2025-07-27 09:27 | ECG_ITS ---
[employer] Test Date: 2025-07-27 Pat Name: Laquita Sexton Department: Room: Gender: Female Mirror Framer: : 1940 Requested By: Bret Liu Order Number: [id number] Vilma MD: Shannan Mahmood M.D. Interpretive Statements Lung unchanged pre/post procedure; Intraprocedure shortess of breath; Symptoms resoled by discharge PROCEDURE: At the baseline, the EKG revealed normal sinus rhythm with normal ST Ts. The baseline heart was 58 bpm with a blood pressue of 145/51 mm of Hg Lexiscan was infused over a period of 20 seconds. A total of 0.4 milligrams of Lexiscan was infused. The stress phase was continued for a total of 5 minutes. Heart rate at the end of the stress phase was 74 bpm with a blood pressure 161/42 mm of Hg. The EKG at the peak infusion revealed no significant changes. Sestamibi was injected 20 seconds after the Lexiscan infusion. Heart rate at the end of the recovery phase was 73 bpm with a blood pressure of 155/43 mm of Hg. CONCLUSION: 1. No significant EKG changes with the LexiScan infusion 2. No LexiScan induced chest pain or cardiac arrhythmia 3. Normal blood pressure and heart rate response 4. Sestamibi/sestamibi perfusion scan pending; see separate report. Electronically Signed On 07-30-2025 20:47:40 CDT by Shannan Mahmood M.D. [email or web address]
--- NOTE | 2025-07-27 09:27 | NMCV_ITS ---
NM osiel perf SPECT r/s* [id number] Laquita Sexton Age: 84 Gender: F : 1940 Exam Date: 07/27/2025 10:11 Ordering Phys: Bret Bolden MD Technologist: KITA Hills Exam Location: [facility] Indications: cp STRESS TEST Please see separate stress test report in [facility] for full findings IMAGE PROTOCOL Rest/Stress 1 Lexiscan Day Radiopharmaceutical Dose (mCi) Administration Site Administered by Rest: Tc-99m 10.6 IV Margie Chua, MICROBIOLOGY SUPERVISOR Sestamibi Stress:Tc-99m 32.5 IV Margie Mistrygle, MICROBIOLOGY SUPERVISOR Sestamibi Rest: 27-Jul-2025 60 Discovery 630 Stress: 27-Jul-2025 30 Discovery 630 0.4mg Lexiscan. Images obtained in supine and prone position. SPECT RESULTS Technical Quality: Good Raw Data Analysis: Normal Image Corrections: No attenuation or motion correction applied Summed Stress Score: 0 Summed Rest Score: 0 Summed Difference Score: 0 PERFUSION FINDINGS Uniform myocardial tracer uptake with no significant Perfusion abnormalities FUNCTIONAL RESULTS (calculated via Gated SPECT) Stress Image LV EF (%): 84 Stress EDV (mL):57 TID: 1.79 Stress ESV (mL):9 FUNCTIONAL FINDINGS: Segmental wall motion analysis revealing no gross wall motion abnormalities IMPRESSIONS 1. Myocardial perfusion imaging revealing uniform tracer uptake with no significant perfusion abnormalities 2. Normal LV ejection fraction of 84%. 3. LV wall motion analysis revealing no gross wall motion abnormalities. 4. Normal LV volume Low probability for coronary ischemia, based on the above findings Dr Shannan Mahmood MD FACC (Electronically Signed) Final Date: 27 July 2025 12:33 S
[2025-07-27 11:06] VITALS: BP 155/73; PULSE 71
== END 2025-07-27 08:54 | disposition home or self-care (01) ==
PROVIDERS: PCP Family Medicine; Visit Provider Family Medicine
DX: R07.9 Chest pain, unspecified (principal); I49.8 Other specified cardiac arrhythmias
CPT/HCPCS: 36415; 78452; 93017; 96374; A9500; J2785

== ENCOUNTER → 2025-08-09 11:51 | Outpatient (BNVA) | payer MEDICARE, SELFPAY | PROVIDERS: PCP Family Medicine; Visit Provider Family Medicine | DX: Z79.01 Long term (current) use of anticoagulants (principal) | CPT/HCPCS: 85610 ==

== ENCOUNTER → 2025-08-23 11:19 | Outpatient (BNVA) | payer MEDICARE, SELFPAY | PROVIDERS: PCP Family Medicine; Visit Provider Family Medicine | DX: Z79.01 Long term (current) use of anticoagulants (principal) | CPT/HCPCS: 85610 ==

== ENCOUNTER → 2025-09-20 11:00 | Outpatient (BNVA) | payer MEDICARE, SELFPAY | PROVIDERS: PCP Family Medicine; Visit Provider Family Medicine | DX: R07.9 Chest pain, unspecified (principal); Z86.711 Personal history of pulmonary embolism | CPT/HCPCS: 85610 ==

== ENCOUNTER 2025-09-22 10:03 | Outpatient (CLI) | payer MEDICARE, SELFPAY ==
--- NOTE | 2025-09-22 10:30 | USCV_ITS ---
SextonLaquita Age: 84 Gender: F : 1940 Exam Date: 09/22/2025 10:34 Ordering Phys: Bret Bolden MD Technologist: Buzz Monteiro Exam Location: [facility] [place] Indication: dyspnea/ chest pain BP: 152 / 65 HR: 65 Rhythm: Sinus Technical Quality: Adequate MEASUREMENTS (Male / Female) Normal Values 2D ECHO LV Diastolic Diameter PLAX 3.5 cm 4.2 - 5.9 / 3.9 - 5.3 cm IVS Diastolic Thickness 0.5 cm 0.6 - 1.0 / 0.6 - 0.9 cm IVS Systolic Thickness 1.1 cm LVPW Diastolic Thickness 0.6 cm 0.6 - 1.0 / 0.6 - 0.9 cm LVPW Systolic Thickness 1.2 cm LVOT Diameter 2.0 cm LV Ejection Fraction 2D Teich 72.6 % LV Ejection Fraction MOD 4C 73.4 % LV Ejection Fraction MOD 2C 67.9 % LV Ejection Fraction 2C AL 70.6 % LA Diameter 3.0 cm RA Systolic Volume 4C AL 24.6 ml RA Systolic Volume 4C MOD 21.6 ml LA Sys Volume AL 32.6 cm cubed LA Sys Volume Index AL 19.4 cm cubed/m squared Aorta at Sinotubular Diameter 2.5 cm IVC Diameter 1.1 cm M-MODE LA Ao Ratio MM 1.3 AV Cusp Separation MM 1.8 cm DOPPLER AV Peak Velocity 149.0 cm/s LVOT Peak Velocity 145.0 cm/s AV Area Cont Eq vti 3.0 cm squared AV Area Cont Eq pk 3.1 cm squared MV Peak Velocity 119.0 cm/s MV Area PHT 4.3 cm squared Mitral E to A Ratio 0.7 TR Peak Velocity 260.0 cm/s TR Peak Gradient 27.0 mmHg TR Mean Velocity 208.0 cm/s TR Mean Gradient 18.6 mmHg TR Velocity Time Integral 66.5 cm PV Peak Velocity 98.3 cm/s RV Ejection Time 0.3 s FINDINGS Left Ventricle Normal left ventricular size, systolic function and wall thickness with no regional wall motion abnormality. Left ventricular ejection fraction is 68%. Normal left ventricular diastolic function. Right Ventricle Normal right ventricular size and systolic function. Right Atrium Normal right atrial size. Left Atrium Normal left atrial size. IA Septum Normal appearance of the interatrial septum. Mitral Valve Mild mitral annular calcification. Trace mitral valve regurgitation Aortic Valve Normal aortic valve structure. No aortic valve stenosis or regurgitation. Tricuspid Valve Normal tricuspid valve structure. Trace tricuspid valve regurgitation. Normal pulmonary pressure. Pulmonic Valve Normal pulmonic valve structure. No pulmonic valve stenosis or regurgitation. Pericardium No pericardial effusion. Aorta Normal diameter of the aortic root and ascending thoracic aorta. IVC Normal IVC diameter. CONCLUSIONS Normal left ventricular size, systolic function and wall thickness with ejection fraction of 68%. Normal right ventricular size and systolic function. No significant valvular abnormalities. Kranthi Jackson MD, FACC (Electronically Signed) Final Date: 22 September 2025 15:01 S
== END 2025-09-22 10:04 | disposition home or self-care (01) ==
LOC: RAD 10:09
PROVIDERS: PCP Family Medicine; Visit Provider Family Medicine
DX: R07.9 Chest pain, unspecified (principal); R06.00 Dyspnea, unspecified; I34.81 Nonrheumatic mitral (valve) annulus calcification
CPT/HCPCS: 93306

== ENCOUNTER → 2025-10-24 11:50 | Outpatient (BNVA) | payer MEDICARE, SELFPAY | PROVIDERS: PCP Family Medicine; Visit Provider Family Medicine | DX: Z86.711 Personal history of pulmonary embolism (principal) | CPT/HCPCS: 85610 ==